=== PATIENT | female | born 1990 ===

== ENCOUNTER 2017-05-10 15:06 | Emergency (ER) | payer SELFPAY ==
[2017-05-10] MEDS ORDERED: Sodium Chloride 0.9% 1,000 ML IV ONE (15:39)
[2017-05-10 15:44] LABS: SQUAMOUS EPITHIAL 2 /hpf (0-5); URINE BILIRUBIN NEGATIVE (NEGATIVE); URINE BLOOD NEGATIVE (NEGATIVE); URINE CLARITY Hazy (Clear); URINE COLOR Yellow (YELLOW); URINE GLUCOSE (UA) NORMAL (Normal); URINE LEUKOCYTE ESTERASE NEG Leu/uL (Negative); URINE PROTEIN NEGATIVE (NEGATIVE)
[2017-05-10 15:45] LABS: HCG,QUALITATIVE URINE NEGATIVE (NEGATIVE)
--- NOTE | 2017-05-10 15:48 | C.PDOC ---
History Of Present Illness 27 y/o female presents to ED with complaints of intermittent left pelvic pain over last month worsening today. Patient denies fever, nausea, vomiting, diarrhea, dysuria, vaginal bleeding, vaginal discharge. LMP last month as per patient. Patient denies concern for STDs or recent unprotected sex. Time Seen by Provider: 05/10/17 15:14 Chief Complaint (Nursing): Abdominal Pain History Per: Patient History/Exam Limitations: no limitations Onset/Duration Of Symptoms: Days Current Symptoms Are (Timing): Still Present Quality Of Discomfort: "Pain" Past Medical History Reviewed: Historical Data, Nursing Documentation, Vital Signs Vital Signs: Last Vital Signs Temp 99.1 F 05/10/17 17:22 Pulse 73 05/10/17 17:22 Resp 18 05/10/17 17:22 BP 116/75 05/10/17 17:22 Pulse Ox 100 05/10/17 18:09 - Medical History PMH: No Chronic Diseases Surgical History: No Surg Hx Family History: States: No Known Family Hx - Social History Hx Alcohol Use: No Hx Substance Use: No - Immunization History Hx Tetanus Toxoid Vaccination: No Hx Influenza Vaccination: No Review Of Systems Except As Marked, All Systems Reviewed And Found Negative. Constitutional: Negative for: Fever, Chills Respiratory: Negative for: Shortness of Breath Gastrointestinal: Negative for: Nausea, Vomiting, Abdominal Pain, Diarrhea Genitourinary: Positive for: Pelvic Pain. Negative for: Dysuria, Hematuria, Vaginal Discharge, Vaginal Bleeding Physical Exam - Physical Exam Appears: Well, Non-toxic, No Acute Distress Skin: Warm, Dry, No Rash Head: Normacephalic Oral Mucosa: Moist Neck: Supple Cardiovascular: Rhythm Regular Respiratory: Normal Breath Sounds, No Rales, No Rhonchi, No Wheezing Gastrointestinal/Abdominal: Normal Exam, Bowel Sounds, Soft, No Tenderness, No Guarding, No Rebound, Other ( scar) Pelvic: No Vaginal Bleeding, No Vaginal Discharge, Adnexal Tenderness (mild to palpation), Other (Palpable 2cm nodule at left margin of Csection surgical scar (? lymph node vs lipoma))) Extremity: Normal ROM Neurological/Psych: Oriented x3 ED Course And Treatment - Laboratory Results Result Diagrams: 05/10/17 15:57 05/10/17 15:57 O2 Sat by Pulse Oximetry: 100 (RA) Pulse Ox Interpretation: Normal Progress Note: Plan: Blood work, UA, UPreg and Transvaginal US ordered and reviewed. Patient given IV NS bolus. Reevaluation Time: 18:05 Reassessment Condition: Improved (On reassessment, patient is resting comfortable, in no pain/distress. On exam, abdomen is soft and nontender. Patient instructed to follow up with burial needs salesperson within 1 week for further eval of pelvic pain/ovarian cysts. She understands she should return to ED if symptoms worsen.) Disposition Counseled Patient/Family Regarding: Diagnosis, Need For Followup, Rx Given - Disposition Referrals: [facility] [Outside] Disposition: HOME/ ROUTINE Disposition Time: 18:05 Condition: STABLE Additional Instructions: FOLLOW UP WITH PRODUCE ASSOCIATE WITHIN 1 WEEK USE MEDICATION NEEDED FOR PAIN RETURN TO EMERGENCY ROOM IF SYMPTOMS WORSEN SEGUIMIENTO CON OB / BARN WORKER DENTRO DE 1 SEMANA USE MEDICAMENTO SEGN SEA NECESARIO PARA DOLOR REGRESE AL ARABELLA DE EMERGENCIA SI LOS SNTOMAS EMPEORAN Prescriptions: Naproxen 375 mg PO BID PRN #20 tablet PRN Reason: pain Instructions: Ovarian Cysts Forms: [place] (Burkinan) Print Language: TURKISH - POA Present On Arrival: None - Clinical Impression Clinical Impression: Ovarian cyst - Scribe Statement The provider has reviewed the documentation as recorded by the Scribyanci Koch All medical record entries made by the Scribe were at my direction and personally dictated by me. I have reviewed the chart and agree that the record accurately reflects my personal performance of the history, physical exam, medical decision making, and the department course for this patient. I have also personally directed, reviewed, and agree with the discharge instructions and disposition.
[2017-05-10 16:00] LABS: BASO % 0.3 % (0.0-2.0); EOS # 0.1 K/uL (0.0-0.7); HEMOGLOBIN 13.1 g/dL (11.0-16.0); LYMPH # 2.3 K/uL (1.0-4.3); LYMPH % 28.3 % (20.0-40.0); MEAN CELL VOLUME 90.3 fL (81.0-99.0); MEAN CORPUSCULAR HEMOGLOBIN 30.9 pg (27.0-31.0); MEAN CORPUSCULAR HGB CONC 34.2 g/dL (33.0-37.0); MEAN PLATELET VOLUME 8.3 fL (7.2-11.7); MONO # 0.5 K/uL (0.0-0.8); MONO % 6.3 % (0.0-10.0); NEUT # 5.2 K/uL (1.8-7.0); NEUT % 64.1 % (50.0-75.0); NRBC % 0.1 % (0.0-2.0); RBC 4.23 Mil/uL (3.80-5.20); RED CELL DISTRIBUTION WIDTH 13.3 % (11.5-14.5); WHITE BLOOD COUNT 8.2 K/uL (4.8-10.8)
[2017-05-10 16:19] LABS: ALB/GLOB RATIO 1.4 (1.0-2.1); ALBUMIN 3.9 g/dL (3.5-5.0); ALT/SGPT 34 U/L (9-52); AST/SGOT 28 U/L (14-36); BLOOD UREA NITROGEN 9 mg/dL (7-17); CALCIUM 8.3 mg/dl (8.6-10.4); GFR AFRICAN-AMERICAN > 60; GFR NON-AFRICAN AMERICAN > 60
[2017-05-10 17:23] VITALS: BP 116/75; PULSE 73; RESP 18; TEMP 99.1
--- NOTE | 2017-05-10 17:40 | US ---
HISTORY: suprapubic, left adnexal pain COMPARISON: None available. TECHNIQUE: Transabdominal and transvaginal FINDINGS: UTERUS: Measures 9.0 x 4.9 x 6.2 cm. Normal in size and appearance. No fibroid or other mass lesion seen. ENDOMETRIUM: Measures 9 mm in diameter. No intrauterine gestational sac identified. CERVIX: No cervical abnormality identified. RIGHT OVARY: Measures 3.9 x 2.2 x 2.6 cm. No solid mass. Normal flow. Complex cystic mass with low-level echoes and peripheral hypervascularity, 1.6 x 1.7 x 2.0 cm. Probable corpus luteum. LEFT OVARY: Measures 3.4 x 2.1 x 2.5 cm. No solid mass. Normal flow. FREE FLUID: There is small amount of free fluid in the cul-de-sac OTHER FINDINGS: None. IMPRESSION: No intrauterine gestation. Complex right ovarian cyst with peripheral hypervascularity, 2.0 cm. Probable corpus luteum. Small amount of free fluid. Otherwise unremarkable.
[2017-05-10 18:09] VITALS: O2SAT 100
== END 2017-05-10 18:20 | disposition home or self-care (01) ==
LOC: C.ER 15:06
DX: N83.209 Unspecified ovarian cyst, unspecified side (principal)
CPT/HCPCS: 76830; 76856; 80053; 81001; 84703; 85025; 96360; 99284; J7040